=== PATIENT | male | born 1990 | race Caucasian/White ===

== ENCOUNTER 2016-08-08 18:34 | Emergency (ER) | payer OTHER ==
[~2016-08-08] VITALS: Ht 177.8 cm; Wt 80.0 kg
[2016-08-08 21:00] VITALS: BP 143/78
== END 2016-08-08 21:00 | disposition home or self-care (01) ==
LOC: ED 18:34
DX: K04.7 Periapical abscess without sinus (principal)
CPT/HCPCS: 90715